=== PATIENT | female | born 1965 | race Asian ===

== ENCOUNTER 2017-11-16 09:27 | Outpatient (CLI) | payer OTHER | END 2017-11-16 19:55 | disposition home or self-care (01) | LOC: SMA 09:27 | PROVIDERS: ATTEND Obstetrics & Gynecology | DX: Z12.31 Encounter for screening mammogram for malignant neoplasm of breast (principal); M79.642 Pain in left hand | CPT/HCPCS: 77067 ==

== ENCOUNTER 2017-12-07 07:50 | Outpatient (CLI) | payer OTHER | END 2017-12-07 19:32 | disposition home or self-care (01) | LOC: SMA 07:50 | PROVIDERS: ATTEND Obstetrics & Gynecology | DX: N92.1 Excessive and frequent menstruation with irregular cycle (principal); R87.619 Unspecified abnormal cytological findings in specimens from cervix uteri; R92.1 Mammographic calcification found on diagnostic imaging of breast; R92.2 Inconclusive mammogram | CPT/HCPCS: 76641; 76830-TC; 76857; 77065 ==

== ENCOUNTER 2018-01-25 08:56 | Outpatient (CLI) | payer OTHER | END 2018-01-25 19:39 | disposition home or self-care (01) | LOC: SUS 08:56 | PROVIDERS: ATTEND Obstetrics & Gynecology | DX: N83.201 Unspecified ovarian cyst, right side (principal); R93.8 Abnormal findings on diagnostic imaging of other specified body structures; N83.202 Unspecified ovarian cyst, left side | CPT/HCPCS: 76830-TC; 76857 ==